=== PATIENT | female | born 1955 | race Caucasian/White ===

== ENCOUNTER 2023-01-07 11:32 | Outpatient (CLI) | payer MEDICARE, OTHER, SELFPAY ==
--- NOTE | 2023-01-07 11:45 | MR_ITS ---
WS: [id number] MRI LUMBAR SPINE NONCONTRAST HISTORY: worsening back pain COMPARISON: 02/16/2016 TECHNIQUE: Sagittal and axial multisequence imaging is submitted. Small disc protrusions in the cervical spine and C4-5, C5-6 and C6-7. No cord compression. Mild increase in lumbar lordosis. L4 retrolisthesis by 4.6 mm. Similar to the prior examination. Mild disc desiccation throughout the lumbar spine. Conus terminates normally at L1. L1-L2: Normal. L2-L3: Mild facet and ligamentum flavum hypertrophy. No stenosis. L3-L4: Mild ligamentum flavum and facet arthritis. No stenosis. L4-L5: Mild annular disc bulge. Moderate ligamentum flavum hypertrophy, LEFT greater than RIGHT encro aching into the thecal sac and subarticular recesses. Previously described central disc protrusion brandt s resolved. Mild central, bilateral subarticular recess and foraminal stenosis. Stenosis has mildly p rogressed since 2016. L5-S1: Mild annular disc bulging. Moderate facet joint arthritis encroaching into the foramina and ce ntral canal. Mild narrowing of the central canal and subarticular recesses and mild RIGHT foraminal s tenosis. Mild progression of stenosis. MR/MR lumbar spine wo con* [id number] IMPRESSION: 1. Mild central, bilateral subarticular recess and foraminal stenosis at L4-5. Central disc has resolved since 2016. Overall the stenosis has progressed slig htly. 2. Mild central, bilateral subarticular recess and RIGHT foraminal stenosis at L5-S1. Mild progression since 2016. 3. L4 retrolisthesis by 4.6 mm.
== END 2023-01-07 11:33 | disposition home or self-care (01) ==
PROVIDERS: PCP Family Medicine; Visit Provider Family Medicine
DX: G89.29 Other chronic pain (principal); M48.061 Spinal stenosis, lumbar region without neurogenic claudication; M48.07 Spinal stenosis, lumbosacral region
CPT/HCPCS: 72148

== ENCOUNTER 2023-09-18 11:29 | Outpatient (CLI) | payer MEDICARE, OTHER, SELFPAY ==
--- NOTE | 2023-09-18 11:46 | MM_ITS ---
WS: [id number] Bilateral screening 3D tomosynthesis digital mammogram, 09/18/2023 Clinical Data: SCREEN Comparison: 03/24/2019, 02/18/2019, 09/23/2014, 05/19/2013, 12/31/2010, 09/21/2009, 08/10/2008, 05/14/2007, 11/10/2006. Findings: The breast parenchymal pattern shows fibroglandular tissue. No spiculated masses or clustered calcifi cations are seen. There are no secondary signs of carcinoma. Impression: 1. Negative bilateral mammogram unchanged. 2. Recommend annual screening mammograms. MM/[place] [id number] BIRADS: 1-Negative FOLLOW UP: 1 Year Follow-up The CAD tool checker was used.
== END 2023-09-18 11:30 | disposition home or self-care (01) ==
PROVIDERS: PCP Family Medicine; Visit Provider Family Medicine
DX: Z12.31 Encounter for screening mammogram for malignant neoplasm of breast (principal)
CPT/HCPCS: 77063; 77067

== ENCOUNTER → 2023-10-27 13:17 | Outpatient (BNVA) | payer MEDICARE, OTHER, SELFPAY | PROVIDERS: PCP Family Medicine; Visit Provider Family Medicine | DX: E78.5 Hyperlipidemia, unspecified (principal); M54.9 Dorsalgia, unspecified; G89.29 Other chronic pain; F41.9 Anxiety disorder, unspecified | CPT/HCPCS: 80053; 80061; 85025 ==

== ENCOUNTER 2024-09-20 12:35 | Outpatient (CLI) | payer MEDICARE, OTHER, SELFPAY ==
--- NOTE | 2024-09-20 13:00 | MM_ITS ---
WS: [id number] SCREENING DIGITAL BREAST TOMOSYNTHESIS MAMMOGRAM WITH CAD HISTORY: screening COMPARISON: 05/19/2013, 09/18/2023, 03/24/2019 and 02/18/2019 Bilateral CC and MLO with tomosynthesis and synthetic mammography submitted. Computer aided detection analyzed. Breast composition: There are scattered areas of fibroglandular density. New high density mass with i ndistinct margins LEFT breast subareolar region. This mass is just lateral to the nipple line measuri ng 7 x 3 x 4 mm. There is an additional stable well-circumscribed mass more lateral. There are additi onal benign calcifications within each breast. MM/MM scr BI tomosynthesis [id number] IMPRESSION: BI-RADS: 0 - Incomplete: Need additional imaging evaluation. FOLLOW UP: Need Additional Imaging LEFT breast: Spot compression views (CC and MLO). True ML. Ultrasound to follow if abnormality persists.
== END 2024-09-20 12:36 | disposition home or self-care (01) ==
LOC: RAD 12:35
PROVIDERS: PCP Family Medicine; Visit Provider Family Medicine
DX: Z12.31 Encounter for screening mammogram for malignant neoplasm of breast (principal); R92.323 Mammographic fibroglandular density, bilateral breasts; N63.42 Unspecified lump in left breast, subareolar
CPT/HCPCS: 77063; 77067

== ENCOUNTER 2024-11-01 11:21 | Outpatient (CLI) | payer MEDICARE, OTHER, SELFPAY ==
--- NOTE | 2024-11-01 11:30 | MM_ITS ---
WS: [id number] ADDITIONAL VIEWS LEFT MAMMOGRAM with tomosynthesis. LEFT BREAST ULTRASOUND HISTORY: Abnormal mammogram COMPARISON: 09/20/2024, 09/18/2023, 02/18/2019 LEFT MAMMOGRAM: Spot compression views and true ML with tomosynthesis and sympathetic mammography. There are 2 high density masses within the lateral LEFT breast. These masses measure approximately 5 x 6 mm. Both of these masses are in the anterior breast. In the retroareolar region this mass is prob ably just below the nipple line near 4-5 o'clock. The more lateral but still anterior mass is at the 3 o'clock position. LEFT BREAST ULTRASOUND 2-D and color Doppler imaging submitted. Minimally complex cysts are noted LEFT breast retroareolar. These correspond to the mammographic find ing. 2 adjacent tiny cysts are noted retroareolar with the largest measuring 0.5 x 0.4 x 0.3 mm. Slig htly further away and also retroareolar is a well-circumscribed cyst with low-level echoes measuring 0.6 x 0.6 x 0.4 cm. MM/MM diag LT tomosynthesis [id number] IMPRESSION: BI-RADS: 2- Benign FOLLOW UP: 1 Year Follow-up
== END 2024-11-01 11:22 | disposition home or self-care (01) ==
LOC: RAD 11:21
PROVIDERS: PCP Family Medicine; Visit Provider Family Medicine
DX: N60.12 Diffuse cystic mastopathy of left breast (principal)
CPT/HCPCS: 76642; 77061; G0279

== ENCOUNTER → 2024-11-11 12:53 | Outpatient (BNVA) | payer MEDICARE, OTHER, SELFPAY | PROVIDERS: PCP Family Medicine; Visit Provider Family Medicine | DX: F41.9 Anxiety disorder, unspecified (principal); E78.5 Hyperlipidemia, unspecified; G47.00 Insomnia, unspecified; G47.33 Obstructive sleep apnea (adult) (pediatric); G89.29 Other chronic pain; M54.9 Dorsalgia, unspecified; Z99.89 Dependence on other enabling machines and devices | CPT/HCPCS: 80053; 80061 ==